=== PATIENT | male | born 1985 | race Caucasian/White ===

== ENCOUNTER 2017-04-12 13:52 | Emergency (ER) | payer SELFPAY ==
[2017-04-12 13:52] VITALS: BP 130/88
--- NOTE | 2017-04-12 14:30 | RAD ---
Right hand, 3 views, 04/12/2017: History: Hand injury No acute fracture or dislocation is identified. There is a thin elongated foreign body compatible with a wire or broken needle fragment in the soft tissues along the radial aspect of the wrist. It measures approximately 8 mm in length. IMPRESSION: 1. No acute bony abnormality is detected. 2. Small wire-like radiopaque foreign body in the soft tissues along the radial aspect of the wrist, of uncertain age. Clinical correlation is suggested.
--- NOTE | 2017-04-12 14:47 | PHYS DOC ---
General Chief Complaint: HAND PROBLEM Stated Complaint: HAND PAIN Time Seen by MD: 14:05 Source: patient Exam Limitations: no limitations Problems: History of Present Illness Initial Comments Patient is a 31-year-old male who complains of fall injury. Patient states that earlier today he slipped on the ice and fell trying to catch himself with his stretch right hand. He complains of thenar eminence pain and what he notes to be swelling, he states the pain is severe worse with movement better with rest. He has come to evaluate for possibility of fracture and is requesting pain medications. He denies numbness tingling weakness or radiating symptoms, denies any other injuries suffered from the fall, no wrists elbows shoulders back or neck pain. No head trauma loss of consciousness or headache. His vital signs are stable and he states that bfjk-fef-illlwfs medications have not been helping. He suffered no abrasions or lacerations. Onset: other Severity: mild Pain/Injury Location: right hand Method of Injury: fell Modifying Factors: worse with jarring, worse with movement, improves with rest Allergies: Coded Allergies: No Known Drug Allergies (Unverified , 04/12/17) Past Medical History Medical History: no pertinent history Surgical History: noncontributory Social History Smoker: cigarettes Alcohol: none Drugs: none Review of Systems Constitutional: denies chills, denies fever, denies malaise Respiratory: denies cough, denies shortness of breath Cardiovascular: denies chest pain, denies palpitations, denies syncope Gastrointestinal: denies abdominal pain, denies nausea, denies vomiting Musculoskeletal: see HPI Skin: see HPI Psychiatric/Neurological: denies numbness, denies paresthesia, denies tingling , denies weakness Physical Exam General Appearance: no apparent distress Neck: full range of motion, supple Cardiovascular/Respiratory: normal peripheral pulses, no respiratory distress Shoulder: normal inspection, non-tender Elbow/Forearm: normal inspection, non-tender Wrist: normal inspection, non-tender Hand: swelling (mild bruising or bony tenderness to range of motion deficit and no snuffbox tenderness. Extremities neurovascularly intact and no tendinopathy noted.) Neurologic/Tendon: normal sensation, normal motor functions, normal tendon functions, responds to pain, no evidence tendon injury Psychiatric: alert, oriented x 3 Orders, Labs, Meds PATIENT: VIC KENNEDY ACCOUNT: [id number] : 1985 LOCATION: ER AGE: 31 SEX: M EXAM STATUS: REG ER ORD. PHYSICIAN: ARAMIS FARRIS DO REASON: punched wall PROCEDURE: HAND RIGHT 3V Right hand, 3 views, 04/12/2017: History: Hand injury No acute fracture or dislocation is identified. There is a thin elongated foreign body compatible with a wire or broken needle fragment in the soft tissues along the radial aspect of the wrist. It measures approximately 8 mm in length. IMPRESSION: 1. No acute bony abnormality is detected. 2. Small wire-like radiopaque foreign body in the soft tissues along the radial aspect of the wrist, of uncertain age. Clinical correlation is suggested. DICTATED AND SIGNED BY: DONN FUENTES MD DATE: 04/12/17 1415 CC: PCP,NO; ARAMIS FARRIS DO ~ I went over results of imaging with the patient extensively. Of note I mentioned that it appeared there was a needle which had broken off and was lodged in the soft tissues of his hand. He denies recollection of such an event and this raises the question of possible IV drug use in the past although the patient does deny. I discussed the need to follow-up with surgeon as an outpatient for removal of this item. I discussed bruise care including icing and baer-kop-bdaltst medications. Discussed signs and symptoms to monitor as well as indications for urgent return to the department. Discussed smoking cessation patient's questions were answered to his satisfaction and he expressed agreement and understanding with the treatment plan. Departure Time of Disposition: 14:49 Disposition: 01 HOME, SELF-CARE Diagnosis: hand contusion, retained foreign body Condition: GOOD Patient Instructions: Foreign Body-Brief, Hand Contusion, [id number], RICE - Routine Care for Injuries, [id number] Additional Instructions: RICE, see handout. Your x-rays reveal no fracture, simple bruising and contusion were present on physical exam. [id number] Tylenol and ibuprofen as needed for discomfort. Your plain films appear to reveal a metallic foreign body at the lateral aspect of the wrist consistent with a wire or needle. You will need to follow-up with a hand surgeon for removal. Follow-up with your doctor in 3-5 days for recheck and to discuss outpatient referral for foreign body removal. Return to ED with new or changing symptoms. ARAMIS FARRIS DO Apr 12, 2017 14:46
[2017-04-12] MEDS ORDERED: IBUPROFEN 600 MG TABLET. PO ONE (15:00)
== END 2017-04-12 15:27 | disposition home or self-care (01) ==
LOC: ER 13:52
DX: S60.221A Contusion of right hand, initial encounter (principal); S60.551A Superficial foreign body of right hand, initial encounter; F17.210 Nicotine dependence, cigarettes, uncomplicated; W00.0XXA Fall on same level due to ice and snow, initial encounter; Y93.89 Activity, other specified; Y99.8 Other external cause status; Y92.89 Other specified places as the place of occurrence of the external cause
CPT/HCPCS: 73130; 99284

== ENCOUNTER 2017-05-09 11:35 | Emergency (ER) | payer SELFPAY ==
[~2017-05-09] VITALS: Ht 170.2 cm; Wt 79.4 kg
--- NOTE | 2017-05-09 12:04 | RAD ---
2 views of the Chest 05/09/2017 1:45 PM Indication: cough for 2 weeks Comparison: None Findings: There is no focal consolidation or infiltrate identified. There is no effusion or pneumothorax. The cardiomediastinal silhouette and pulmonary vasculature are within normal limits. No osseous abnormality is identified. Impression: No evidence of acute cardiopulmonary process.
[2017-05-09] MEDS ORDERED: BENZ100C PO (12:20)
[2017-05-09] MEDS ORDERED: AMOX500C PO (12:20)
--- NOTE | 2017-05-09 12:20 | PHYS DOC ---
Past History Past Medical History: Hypertension Past Surgical History: No Surgical History Smoking: Greater than 1 pack/day Alcohol Use: None Drug Use: Marijuana Adult General Chief Complaint Chief Complaint: COUGH HPI HPI 31-year-old male patient with a smoking history complaining of cough with intermittent reduction of his sputum for the last 2 weeks that does not getting better. 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 Patient complaining of nasal congestion, sore throat, body ache, nausea , intermittent episodes of diarrhea and vomiting. Patient denies sick contact. Review of Systems Review of Systems Constitutional: Poor subjective fever Eyes: Denies change in visual acuity, redness, or eye pain [] HENT: Nasal congestion and sore throat Respiratory: Reports cough] Cardiovascular: No additional information not addressed in HPI [] GI: Denies abdominal pain, bloody stools , reports nausea and vomiting and diarrhea [] : Denies dysuria or hematuria [] Musculoskeletal: Denies back pain or joint pain [] Integument: Denies rash or skin lesions [] Neurologic: Denies headache, focal weakness or sensory changes [] Endocrine: Denies polyuria or polydipsia [] All other systems were reviewed and found to be within normal limits, except as documented in this note. Allergies Allergies Allergies Coded Allergies Type Severity Reaction Last Updated Verified No Known Drug Allergies 04/12/17 No Physical Exam Physical Exam Constitutional: Well nourished, no acute distress, non-toxic appearance. [] HENT: Normocephalic, atraumatic, bilateral external ears normal, oropharynx moist, no oral exudates, nose normal. [] Eyes: PERRLA, EOMI, conjunctiva normal, no discharge. [] Neck: Normal range of motion, no tenderness, supple, no stridor. [] Cardiovascular:Heart rate regular rhythm, no murmur [] Lungs & Thorax: Bilateral breath sounds clear to auscultation [] Abdomen: Bowel sounds normal, soft, no tenderness, no masses, no pulsatile masses. [] Skin: Warm, dry, no erythema, no rash. [] Back: No tenderness, no CVA tenderness. [] Extremities: No tenderness, no cyanosis, no clubbing, ROM intact, no edema. [] Neurologic: Alert and oriented X 3, normal motor function, normal sensory function, no focal deficits noted. [] Psychologic: Affect normal, judgement normal, mood normal. [] Current Patient Data Vital Signs Vital Signs Date Time Temp Pulse Resp B/P (MAP) Pulse Ox O2 Delivery O2 Flow Rate FiO2 05/09/17 11:40 98.1 64 18 100 Room Air EKG EKG [] Radiology/Procedures Radiology/Procedures [] [address] [address] IMAGING REPORT Signed PATIENT: VIC KENNEDY ACCOUNT: [id number] : 1985 LOCATION: ER AGE: 31 SEX: M EXAM STATUS: REG ER ORD. PHYSICIAN: SUPRIYA BRAVO MD REASON: cough for 2 weeks PROCEDURE: CHEST PA & LATERAL 2 views of the Chest 05/09/2017 1:45 PM Indication: cough for 2 weeks Comparison: None Findings: There is no focal consolidation or infiltrate identified. There is no effusion or pneumothorax. The cardiomediastinal silhouette and pulmonary vasculature are within normal limits. No osseous abnormality is identified. Impression: No evidence of acute cardiopulmonary process. DICTATED AND SIGNED BY: MAK SANCHES MD DATE: 05/09/17 1202 CC: SUPRIYA BRAVO MD; PCP,NO ~ Course & Med Decision Making Course & Med Decision Making Pertinent Imaging studies reviewed. (See chart for details) I've spoken with the patient and/or caregivers. I've explained the patient's condition, diagnosis and treatment plan based on information available to me at this time. I've answered the patient's and/or caregivers questions and addressed any concerns. The patient and/or caregivers have a good understanding the patient's diagnosis, condition and treatment plan as can be expected at this point. Vital signs have been stabilized. The patient's condition is stable for discharge from the emergency department. The patient will pursue further outpatient evaluation with her primary care provider or other designated consulting physician as outlined in the discharge instructions. Patient and/or caregivers are agreeable to this plan of care and follow-up instructions have been explained in detail. The patient and/or caregivers have received these instructions in written format and expressed understanding of these discharge instructions. The patient and her caregivers are aware that if any significant change in condition or worsening of symptoms should prompt him to immediately return to this of the closest emergency department. If an emergent department is not readily available I would encourage him to call 911. [] Dragon Disclaimer Dragon Disclaimer This electronic medical record was generated, in whole or in part, using a voice recognition dictation system. Departure Departure: Impression: Primary Impression: Bronchitis Additional Impressions: Tobacco abuse Tobacco abuse counseling Disposition: HOME, SELF-CARE (At 1216) Referrals: PCP,NO (PCP) Patient Instructions: Acute Bronchitis, Smoking Cessation, Tips For Success Additional Instructions: Drink plenty of liquids Follow-up with your primary care physician in 3-5 days Return to ER if not getting better Quit smoking Scripts Benzonatate (TESSALON PERLE) 100 Mg Capsule 1 CAP PO TID, #30 CAP Prov: SUPRIYA BRAVO MD 05/09/17 Amoxicillin (AMOXICILLIN) 500 Mg Capsule 1 CAP PO TID, #30 CAP Prov: SUPRIYA BRAVO MD 05/09/17 Problem Qualifiers SUPRIYA BRAVO MD May 09, 2017 12:20
[2017-05-09 12:34] VITALS: BP 146/96
== END 2017-05-09 12:38 | disposition home or self-care (01) ==
LOC: ER 11:35
DX: J40 Bronchitis, not specified as acute or chronic (principal); R11.2 Nausea with vomiting, unspecified; R19.7 Diarrhea, unspecified; F17.210 Nicotine dependence, cigarettes, uncomplicated; I10 Essential (primary) hypertension; F12.10 Cannabis abuse, uncomplicated; Z71.6 Tobacco abuse counseling
CPT/HCPCS: 71046; 99284